=== PATIENT | female | born 1980 | race Caucasian/White ===

== ENCOUNTER → 2021-08-24 12:20 | Outpatient (CLI) | payer BC, SELFPAY ==
--- NOTE | ~2021-08-24 | MM_ITS ---
EXAMINATION: MM screening nasra BI w danilo HISTORY: Baseline screening mammogram TECHNIQUE: Craniocaudal and mediolateral oblique 3-D tomosynthesis images were obtained and synthetic 2-D images were generated. CAD analysis was submitted and interpreted. COMPARISON: None, baseline BREAST PARENCHYMAL COMPOSITION: The breasts are heterogeneously dense, which may obscure small masses . FINDINGS: RIGHT BREAST: There is no suspicious mass, calcification, or architectural distortion to suggest nj gnancy. LEFT BREAST: There is focal asymmetry in the middle third of the slightly inner breast. IMPRESSION: 1. Left breast focal asymmetry. 2. Additional mammographic views and possible breast ultrasound are recommended. BI-RADS Category 0: Incomplete: Needs additional imaging evaluation. Reviewed, dictated and finalized at location A. IMPRESSION: 1. Left breast focal asymmetry. 2. Additional mammographic views and possible breast ultrasound are recommended . BI-RADS Category 0: Incomplete: Needs additional imaging evaluation.
== END ==
PROVIDERS: PCP Family Medicine; Visit Provider Obstetrics & Gynecology
DX: Z12.31 Encounter for screening mammogram for malignant neoplasm of breast (principal); R92.8 Other abnormal and inconclusive findings on diagnostic imaging of breast
CPT/HCPCS: 77063; 77067

== ENCOUNTER → 2021-09-12 14:13 | Outpatient (CLI) | payer BC, SELFPAY ==
--- NOTE | ~2021-09-12 | MMUS_ITS ---
EXAMINATION: MM diagnostic nasra LT w danilo, US breast LT limited HISTORY: Follow-up left breast asymmetries TECHNIQUE: Additional 3-D tomosynthesis images of the left breast were performed and synthetic 2-D im ages were generated. CAD analysis was submitted and interpreted. High resolution Limited left breast ultrasound was performed. COMPARISON: 08/24/2021 BREAST PARENCHYMAL COMPOSITION: Breast composed of scattered areas of fibroglandular density FINDINGS: MAMMOGRAPHIC FINDINGS: There are no discrete masses, calcifications or architectural distortion in the left breast to sugges t malignancy. ULTRASOUND: Limited left breast ultrasound: There are multiple simple and complicated cysts of the left breast in the periareolar location of the left breast. At 4:00 near the areola there is a 1.5 cm intramammary lymph node. At 6:00 near the areola there is a cluster of microcysts measuring up to 7 mm in aggregat e. No suspicious masses to suggest malignancy. IMPRESSION: 1. No evidence for malignancy in the left breast. Benign findings. 2. Routine yearly screening mammogram and regular clinical breast examination are recommended. BI-RADS Category 2: Benign finding(s). Reviewed, dictated and finalized at location A. IMPRESSION: 1. No evidence for malignancy in the left breast. Benign findings. 2. Routine yearly screening mammogram and regular clinical breast examination a re recommended. BI-RADS Category 2: Benign finding(s).
== END ==
PROVIDERS: PCP Family Medicine; Visit Provider Obstetrics & Gynecology
DX: R92.8 Other abnormal and inconclusive findings on diagnostic imaging of breast (principal)
CPT/HCPCS: 76642; 77061; 77065; G0279

== ENCOUNTER → 2023-02-15 15:49 | Outpatient (CLI) | payer OTHER, SELFPAY ==
--- NOTE | ~2023-02-15 | MM_ITS ---
EXAMINATION: MM screening nasra BI w danilo HISTORY: Screening mammogram TECHNIQUE: Craniocaudal and mediolateral oblique 3-D tomosynthesis images were obtained and synthetic 2-D images were generated. CAD analysis was submitted and interpreted. COMPARISON: 09/12/2021, 08/24/2021 BREAST PARENCHYMAL COMPOSITION: The breasts are heterogeneously dense, which may obscure small masses . FINDINGS: No suspicious mass, calcification, or architectural distortion are identified in either miriam ast to suggest malignancy. There has been no suspicious interval change. IMPRESSION: 1. No mammographic evidence of malignancy. 2. Recommend routine screening mammography in one year. BI-RADS Category 1: Negative Reviewed, dictated and finalized at location A. [employer]
== END ==
PROVIDERS: PCP Obstetrics & Gynecology; Visit Provider Obstetrics & Gynecology
DX: Z12.31 Encounter for screening mammogram for malignant neoplasm of breast (principal)
CPT/HCPCS: 77063; 77067